=== PATIENT | female | born 1955 | race Caucasian/White ===

== ENCOUNTER 2020-06-19 14:48 | Emergency (ER) | payer BC, OTHER ==
[~2020-06-19] VITALS: Ht 170.2 cm; Wt 86.2 kg
[~2020-06-19 14:48] MED LIST: ALPRAZOLAM 0.50.5 M1 PO; ASPIRIN325 PO; CARISOPRODOL 3350 M1 PO; IBU600 MG PO; LISINOPRIL-HCT1 EAC1 PO; LISINOPRIL-HCT1 EACH PO; NICORETTE2 MG BC; OSTEO BI-FLEX1 EAC1 PO; OXYCODONE HCL 55 MG PO; OXYCODONE HCL5 MG PO; VITAMIN B-12500 MCG PO
[2020-06-19] MEDS ORDERED: LISINOPRIL10 MG PO (16:04)
[2020-06-19] MEDS ORDERED: HYDROCHLOROTH12.5 M1 PO (16:04)
[2020-06-19 16:18] LABS: URINE BILIRUBIN NEGATIVE (Negative); URINE BLOOD NEGATIVE (Negative); URINE CLARITY CLEAR; URINE COLOR YELLOW; URINE GLUCOSE-RANDOM* NEGATIVE (Negative); URINE KETONES NEGATIVE (Negative); URINE LEUKOCYTES-REFLEX NEGATIVE (Negative); URINE NITRITE-REFLEX NEGATIVE (Negative); URINE PROTEIN (DIPSTICK) NEGATIVE (Negative); URINE SPECIFIC GRAVITY 1.015 (1.005-1.035); URINE UROBILINOGEN 0.2 E.U./dl (0.2-1.0)
[2020-06-19 17:54] VITALS: BP 132/77
== END 2020-06-19 17:56 | disposition home or self-care (01) ==
LOC: ER 14:48
PROVIDERS: Physician Assistant
DX: R50.9 Fever, unspecified (principal); I10 Essential (primary) hypertension; Z90.710 Acquired absence of both cervix and uterus; Z79.899 Other long term (current) drug therapy; Z87.891 Personal history of nicotine dependence; Z20.828 Contact with and (suspected) exposure to other viral communicable diseases